=== PATIENT | male | born 1955 | race Caucasian/White ===

== ENCOUNTER 2016-11-11 06:27 | Day surgery (SDC) | payer OTHER ==
[2016-09-22 08:44] VITALS: BMI 36.0
[2016-09-22 08:53] VITALS: BMI 36.0
--- NOTE | 2016-09-22 09:11 | PAT Medication Instructions ---
Service Date September 22, 2016. Current Home Medication List Amlodipine (Norvasc), 5 MG PO QAM Aspirin (Aspirin Ec), 81 MG PO HS Cholestyramine Light (Questran Powder Light), 1 PKT PO qidm Hydrochlorothiazide (Hctz), 1 TAB PO QAM Medication Instructions For Your Scheduled Surgery - Check with surgeon/recordist for instructions: Aspirin (Aspirin Ec), 81 MG PO HS - Hold the following medications the morning of surgery: Hydrochlorothiazide (Hctz), 1 TAB PO QAM Cholestyramine Light (Questran Powder Light), 1 PKT PO qidm - Take the following medications the morning of surgery with a sip of water: Amlodipine (Norvasc), 5 MG PO QAM - Hold the following medications as scheduled the afternoon and night before surgery: Cholestyramine Light (Questran Powder Light), 1 PKT PO qidm If you have any questions please call us at [phone] (Anahi Howell PA-C ) or [phone] or [phone]
--- NOTE | 2016-09-22 09:43 | DIAGNOSTIC IMAGING REPORT ---
CHEST PREADMISSION(PA/LAT) CLINICAL HISTORY: PAT preoperative evaluation COMPARISON STUDY: No previous studies for comparison. FINDINGS: The bones soft tissues and hemidiaphragms are normal. The cardiomediastinal silhouette is normal. The lungs are clear. The pulmonary vasculature is normal. IMPRESSION: Negative chest. Electronically signed by: Christian Garcia M.D. 09/22/2016 9:42 AM Dictated Date/Time: 09/22/2016 9:42 AM
[2016-09-22 10:33] LABS: URINE APPEARANCE CLEAR (CLEAR); URINE BILIRUBIN NEG (NEG); URINE COLOR YELLOW; URINE NITRITE NEG (NEG); URINE SPECIFIC GRAVITY 1.016 (1.000-1.030); UROBILINOGEN NEG (NEG)
[2016-09-22 10:38] LABS: MANUAL MICROSCOPIC REQUIRED? NO; REVIEW REQ? NO
[2016-10-21 12:18] LABS: URINE APPEARANCE CLEAR (CLEAR); URINE BILIRUBIN NEG (NEG); URINE COLOR YELLOW; URINE NITRITE NEG (NEG); UROBILINOGEN NEG (NEG)
[2016-10-21 12:23] LABS: MANUAL MICROSCOPIC REQUIRED? NO; REVIEW REQ? NO
[2016-10-21 12:37] LABS: BASO % 0.5 %; BASO ABS # 0.03 K/uL (0-0.2); COMPLETE YES; EOS % 1.8 %; HEMATOCRIT 42.8 % (42-52); IG% 0.3 %; LYMPH % 26.3 %; LYMPH ABS # 1.73 K/uL (1.2-3.4); MEAN CELL VOLUME 94.1 fL (80-100); MEAN CORPUSCULAR HEMOGLOBIN 32.5 pg (25-34); MEAN CORPUSCULAR HGB CONC 34.6 g/dl (32-36); MEAN PLATELET VOLUME 8.9 fL (7.4-10.4); MONO % 10.5 %; NEUT % 60.6 %; PLATELET COUNT 322 K/uL (130-400); RED BLOOD COUNT 4.55 M/uL (4.7-6.1); WHITE BLOOD COUNT 6.57 K/uL (4.8-10.8)
[2016-10-21 12:42] LABS: BUN/CREATININE RATIO 17.1 (10-20); CALCIUM 9.3 mg/dl (8.5-10.1); POTASSIUM 3.8 mmol/L (3.5-5.1)
[~2016-11-11] VITALS: Ht 172.7 cm; Wt 106.9 kg
[~2016-11-11 06:27] MED LIST: AMLO-110 PO; ASPI81TA28 PO; CHOL4POW2 PO; CIPROFLOXACIN / D5W 400 MG IV SCH; GENTAMICIN INJ 120 MG in DEXTROSE 5% 100ML 100 ML IV SCH; HYDR25TA4 PO; LACTATED RINGER'S 1000ML 1,000 ML IV SCH
[2016-11-11] MEDS ORDERED: ONDANSETRON INJ 2 MG/ML 2 ML VIAL ONE (06:56)
[2016-11-11] MEDS ORDERED: MIDAZOLAM HCL 1 MG/ML 2ML VIAL ONE (06:56)
[2016-11-11] MEDS ORDERED: LIDOCAINE HCL 2% 2 ML VIAL (20MG/ML) ONE (06:56)
[2016-11-11] MEDS ORDERED: DEXAMETHASONE SOD INJ 4 MG/ML VIAL ONE (06:56)
[2016-11-11] MEDS ORDERED: PROPOFOL IV EMULSION 10 MG/ML 20 ML VIAL IV ONE (06:56)
[2016-11-11] MEDS ORDERED: FENTANYL CITRATE INJ 50 MCG/1 ML 2 ML VIAL ONE ×2 (06:56→09:28)
[2016-11-11 06:57] VITALS: BP 188/75; PULSE 97; TEMP 36.5; O2SAT 96; Ht 172.7 cm; Wt 106.9 kg
[2016-11-11] MEDS ORDERED: NEOMYCIN/POLYMYX/BACITR OINT 15 GM TUBE ONE (07:11)
--- NOTE | 2016-11-11 07:59 | History & Physical Bridge Note ---
H&P Re-Evaluation Bridge Note: I have examined the patient, reviewed the History & Physical and in the interval since the performance of the History & Physical I have noted the following changes of clinical significance: No changes noted
[2016-11-11] MEDS ORDERED: ONDANSETRON INJ 2 MG/ML 2 ML VIAL IV PRN (08:15)
[2016-11-11] MEDS ORDERED: LABETALOL HCL IV 5 MG/ML 20ML IV PRN (08:15)
[2016-11-11] MEDS ORDERED: FENTANYL CITRATE INJ 50 MCG/1 ML 2 ML VIAL IV PRN (08:15)
[2016-11-11] MEDS ORDERED: ATROPINE SULFATE 0.1 MG/ML 5ML SYR IV PRN (08:15)
[2016-11-11] MEDS ORDERED: GLYCOPYRROLATE INJ 0.2 MG/ML VIAL ONE (09:08)
[2016-11-11] MEDS ORDERED: ROCURONIUM BROMIDE 10 MG/ML 5 ML VIAL ONE ×2 (09:08→09:29)
[2016-11-11] MEDS ORDERED: NEOSTIGMINE METHYLSULFATE 5 MG/5 ML SYR ONE (09:08)
[2016-11-11] MEDS ORDERED: EpHEDrine SULFATE 50MG/5ML SYR ONE (09:54)
[2016-11-11] MEDS ORDERED: PHENYLEPHRINE 100MCG/ML 5ML SYR ONE (10:12)
--- NOTE | 2016-11-11 10:56 | DIAGNOSTIC IMAGING REPORT ---
INTRAOPERATIVE PELVIS SINGLE VIEW CLINICAL HISTORY: BRACHY THERAPY VOLUME COMPARISON STUDY: No previous studies for comparison. FINDINGS: 4 seconds of fluoroscopic time was utilized. A single intraprocedural fluoroscopic spot film is provided for interpretation. This reveals contrast within the bladder. Multiple brachytherapy prostate seeds are visualized. IMPRESSION: Fluoroscopic spot image demonstrating multiple brachytherapy prostate implant seeds Electronically signed by: Ryan Ospina M.D. 11/11/2016 10:54 AM Dictated Date/Time: 11/11/2016 10:53 AM
--- NOTE | 2016-11-11 10:59 | Discharge Instructions ---
Discharge Instructions Date of Service Nov 11, 2016. Admission Reason for Admission: Prostate Cancer Discharge Discharge Diagnosis / Problem: Prostate cancer s/p brachytherapy Discharge Goals Goal(s): Improve disease control, Therapeutic intervention Activity Recommendations Activity Limitations: as noted below Lifting Limitations: no more than 25 pounds, gradually increase as tolerated ( increase over 5-7 days) Exercise/Sports Limitations: rest today, gradually increase as tolerated (over 5-7 days) May Resume Sexual Activity: after follow-up appointment Shower/Bathe: tomorrow (no tub bath x 1 week) Driving or Machine Use: resume 1 day after discharge . Instructions / Follow-Up Instructions / Follow-Up As scheduled in office Discharge Diet Recommended Diet: Regular Diet (good fluid intake) Procedures Procedures Performed: Transperineal ultrasound guided prostate conformal brachytherapy with implantation of radioactive seeds into the prostate Pending Studies Studies pending at discharge: no Medical Emergencies . Who to Call and When: Medical Emergencies: If at any time you feel your situation is an emergency, please call 911 immediately. . Non-Emergent Contact Non-Emergency issues call your: Urologist Call Non-Emergent contact if: you have a fever, temperature is above 101, your pain is not controlled, your pain is worsening, your pain is unusual for you, your pain is concerning you, wound has increased drainage, wound has increased redness, wound has increased pain, you have any medication questions . . "Provider Documentation" section prepared by Jose Plaza. . VTE Core Measure Inpt VTE Proph given/why not?: SCD's
[2016-11-11] MEDS ORDERED: OXYCODONE/ACETAMINOPHEN 5-325 TAB PO PRN (11:00)
--- NOTE | 2016-11-11 11:01 | [facility] Post Operative Brief Note ---
Immediate Operative Summary Operative Date Nov 11, 2016. Pre-Operative Diagnosis Prostate cancer Post-Operative Diagnosis Prostate cancer Procedure(s) Performed Transperineal ultrasound guided prostate conformal brachytherapy with implantation of radioactive seeds into the prostate Surgeon Dr. Jose Plaza, Dr Tarik Carter Pan Dumper Surgeon(s) Niraml Wislon Estimated Blood Loss 5ml Findings 33 cc prostate, 53 seeds implanted via 18 needles Specimens No pathology specimens per surgeon Drains Arechiga to gravity Anesthesia GAET Complication(s) None Disposition Recovery Room / PACU
--- NOTE | 2016-11-11 11:06 | [facility] Operative Report ---
Operative Report Operative Date Nov 11, 2016. Pre-Operative Diagnosis Prostate cancer Post-Operative Diagnosis Prostate cancer Procedure(s) Performed Transperineal ultrasound guided prostate conformal brachytherapy with implantation of radioactive seeds into the prostate Surgeon Dr. Jose Plaza, Dr Tarik Carter Safety Inspector Surgeon(s) Nirmal Wilson Estimated Blood Loss 5ml Findings 33 cc prostate intraop, 53 seeds implanted via 18 needles Specimens No pathology specimens per surgeon Drains Arechiga to gravity Anesthesia GAET Complication(s) None Disposition Recovery Room / PACU Indications Prostate cancer for radiation therapy with external boost Description of Procedure Patient was properly identified and brought to the operative suite after identification of appropriate consent in the chart. General anesthesia with endotracheal intubation was initiated and patient was prepped and draped in a standard fashion for this procedure. Full-time out procedure was followed. Intravenous gentamicin and ciprofloxacin was provided for antibiotic coverage. Patient followed his prep preop without difficulties. Completion was placed in a dorsal lithotomy position and Arechiga catheter was placed. Bladder was drained and then instilled with diluted contrast solution and then aerated gel. This allowed for identification of the urethra throughout the case. Transrectal ultrasound probe was placed in prostate was easily visualized and mapped out for radiation oncology mapping. Peripheral pass of 12 needles was placed and after radiation oncology planning needles were placed according to plan. Excellent visualization of the needles in their location over the course the procedure was present. After this was complete 6 central needles were placed and implanted under live ultrasound guidance as with the periphery. Fluoroscopy was used throughout the case as necessary for confirmation of seed location. After this was complete perineal pressure was held and antibiotic ointment placed. Catheter was flushed and placed to gravity drainage. Anesthesia was reversed and patient was transferred to the recovery room in stable condition. Procedure was well-tolerated. Patient will be discharged the radiation oncology department for a trial of void. He is filled his prescriptions preoperatively will complete his medications as prescribed. Patient is to contact us regarding any fevers, chills, nausea vomiting or other significant difficulties in the postoperative period I attest to the content of the Intraoperative Record and any orders documented therein. Any exceptions are noted below.
[2016-11-11 11:40] VITALS: BP 123/49; PULSE 61; TEMP 36.4; O2SAT 95
--- NOTE | 2016-11-11 12:55 | Anesthesiology Progress Note ---
Anesthesia Post Op Note Date & Time Nov 11, 2016 at 12:55 Vital Signs Pain Intensity: 0 Vital Signs Past 12 Hours Date Time Temp Pulse Resp B/P (MAP) Pulse Ox O2 Delivery O2 Flow Rate FiO2 11/11/16 11:40 36.4 61 16 123/49 95 Room Air 0 11/11/16 11:31 36.4 11/11/16 11:31 128/66 11/11/16 11:28 63 16 11/11/16 11:28 61 16 100 11/11/16 11:26 126/68 11/11/16 11:23 62 16 100 11/11/16 11:23 63 16 11/11/16 11:22 65 16 100 11/11/16 11:22 64 16 11/11/16 11:21 124/73 11/11/16 11:17 66 15 11/11/16 11:17 66 15 100 11/11/16 11:16 67 16 132/64 100 11/11/16 11:16 66 16 11/11/16 11:11 65 16 11/11/16 11:11 64 16 125/65 100 11/11/16 11:10 71 14 100 11/11/16 11:10 71 14 11/11/16 11:06 131/72 11/11/16 11:05 68 17 100 11/11/16 11:05 68 17 11/11/16 11:02 135/74 11/11/16 11:00 73 25 11/11/16 11:00 72 25 100 11/11/16 10:56 147/75 11/11/16 10:55 36.6 75 16 147/75 99 Mask 10 11/11/16 10:55 78 21 100 11/11/16 10:55 78 21 11/11/16 06:57 36.5 97 18 188/75 (112) 96 Room Air Notes Mental Status: alert / awake / arousable, participated in evaluation Pt Amnestic to Procedure: Yes Nausea / Vomiting: adequately controlled Pain: adequately controlled Airway Patency, RR, SpO2: stable & adequate BP & HR: stable & adequate Hydration State: stable & adequate Anesthetic Complications: no major complications apparent
[2016-12-09] MEDS ORDERED: SILO8CAP PO (14:04)
[2016-12-09] MEDS ORDERED: IBUP200C14 PO (14:04)
[2016-12-09] MEDS ORDERED: METH118C PO (14:08)
[2017-01-10] MEDS ORDERED: FINA5TAB PO (08:12)
[2017-01-24] MEDS ORDERED: PSYL48.59 PO (08:08)
[2017-01-31] MEDS ORDERED: CLB/200 PO (08:11)
== END 2016-11-11 12:50 | disposition home or self-care (01) ==
LOC: C.ACU 06:27
PROVIDERS: ATTEND Urology
DX: C61 Malignant neoplasm of prostate (principal); E78.00 Pure hypercholesterolemia, unspecified; I10 Essential (primary) hypertension; Z80.42 Family history of malignant neoplasm of prostate

== ENCOUNTER 2016-11-13 21:04 | Emergency (ER) | payer OTHER ==
[~2016-11-13] VITALS: Ht 172.7 cm; Wt 107.0 kg
[~2016-11-13 21:04] MED LIST changes: -CIPROFLOXACIN / D5W 400 MG IV SCH; -GENTAMICIN INJ 120 MG in DEXTROSE 5% 100ML 100 ML IV SCH; -LACTATED RINGER'S 1000ML 1,000 ML IV SCH
[2016-11-13 21:08] VITALS: TEMP 36.6; Ht 172.7 cm; Wt 107.0 kg
[2016-11-13 21:36] LABS: URINE APPEARANCE CLEAR (CLEAR); URINE BILIRUBIN NEG (NEG); URINE COLOR DK YELLOW; URINE EPITHELIAL CELL AUTO 0-5 /lpf (0-5); URINE NITRITE POS (NEG); URINE SPECIFIC GRAVITY 1.014 (1.000-1.030); UROBILINOGEN NEG (NEG); ZZURINE CULT IF INDIC CATH NO
[2016-11-13 21:40] LABS: MANUAL MICROSCOPIC REQUIRED? NO; REVIEW REQ? NO
[2016-11-13] MEDS ORDERED: METH4PAK PO (22:03)
[2016-11-13] MEDS ORDERED: CIPR-255 PO (22:08)
[2016-11-13] MEDS ORDERED: PHEN-876 PO (22:10)
[2016-11-13] MEDS ORDERED: TAMS0.4C38 PO (22:11)
[2016-11-13 22:14] VITALS: BP 157/86; PULSE 93; O2SAT 96
--- NOTE | 2016-11-14 01:16 | EMERGENCY ROOM VISIT NOTE ---
History Report prepared by Alenibimani: Annika Willingham Under the Supervision of: Dr. Jan Owens D.O. First contact with patient: 21:11 Chief Complaint: UNABLE TO VOID Stated Complaint: PROSTATE SURGERY TUESDAY, UNABLE TO VOID History of Present Illness The patient is a 61 year old male who presents to the Emergency Room with complaints of being unable to urinate. He reports he underwent prostate surgery 3 days ago and the last time he urinated was approximately 3 hours prior to arrival to the ED. He rates his discomfort as a 7/10 in severity. He reports his urine was red due to Pyridium the last time he urinated. He denies any other complaints at today's visit. Pt denies headache, change in vision, fevers , chest pain, shortness of breath, nausea, vomiting, diarrhea, and melena. 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 A total of 10 systems reviewed and were otherwise negative. Past Medical & Surgical Medical Problems: (1) No significant medical problems Surgical Problems: (1) No significant past surgical history Social History Smoking Status: Never Smoker Alcohol Use: none Drug Use: none Marital Status: Housing Status: lives with family Occupation Status: retired Current/Historical Medications Scheduled Amlodipine (Norvasc), 5 MG PO QAM Aspirin (Aspirin Ec), 81 MG PO HS Cholestyramine Light (Questran Powder Light), 1 PKT PO qidm Ciprofloxacin Hcl (Cipro), 500 MG PO BID Hydrochlorothiazide (Hctz), 25 MG PO QAM Methylprednisolone (Medrol Dosepak), 1 PKT PO UD Tamsulosin Hcl (Flomax), 0.4 MG PO HS Scheduled PRN Phenazopyridine HCl (Pyridium), 200 MG PO TID PRN for Pain Allergies Coded Allergies: No Known Allergies (Unverified , 09/22/16) Physical Exam Vital Signs Date Time Temp Pulse Resp B/P (MAP) Pulse Ox O2 Delivery O2 Flow Rate FiO2 11/13/16 22:14 93 18 157/86 96 11/13/16 21:08 36.6 136 18 192/109 100 Room Air Physical Exam GENERAL: Patient is sitting up in bed, in significant distress, and appears anxious. EYE EXAM: normal conjunctiva, PERRL and EOM's grossly intact OROPHARYNX: no exudate, no erythema, lips, buccal mucosa, and tongue normal and mucous membranes are moist NECK: supple, no nuchal rigidity, no adenopathy, non-tender LUNGS: Clear to auscultation. Normal chest wall mechanics HEART: Tachycardic heart rate, no murmurs, S1 normal and S2 normal ABDOMEN: abdomen soft, non-tender, normo-active bowel sounds, no masses, no rebound or guarding. : Testicles are nontender, without penile discharge. Bedside ultrasound shows a large, distended bladder. BACK: Back is symmetrical on inspection and there is no deformity, no midline tenderness, no CVA tenderness. SKIN: no rashes and no bruising UPPER EXTREMITIES: upper extremities are grossly normal. LOWER EXTREMITIES: No pitting edema. NEURO EXAM: Normal sensorium, cranial nerves II-XII grossly intact, normal speech, no gross weakness of arms, no gross weakness of legs. Gross sensation intact. Medical Decision & Procedures Laboratory Results Test 11/13/16 21:20 Urine Color DK YELLOW Urine Appearance CLEAR (CLEAR) Urine pH 5.0 (4.5-7.5) Urine Specific [place] 1.014 (1.000-1.030) Urine Protein NEG (NEG) Urine Glucose (UA) NEG (NEG) Urine Ketones NEG (NEG) Urine Occult Blood 2+ (NEG) Urine Nitrite POS (NEG) Urine Bilirubin NEG (NEG) Urine Urobilinogen NEG (NEG) Urine Leukocyte Esterase NEG (NEG) Urine WBC (Auto) 0 /hpf (0-5) Urine RBC (Auto) 0-4 /hpf (0-4) Urine Hyaline Casts (Auto) 0 /lpf (0-5) Urine Epithelial Cells (Auto) 0-5 /lpf (0-5) Urine Bacteria (Auto) NEG (NEG) ED Course ED COURSE: Vital signs were reviewed and showed the patient is hypertensive and tachycardic The patients medical record was reviewed The above diagnostic studies were performed and reviewed. ED treatments and interventions as stated above. 2112: The patient was evaluated in room A10. A complete history and physical examination was performed. 2154: Upon reevaluation, the patient is feeling much better. 1000 mL of urine were expressed from his bladder via Arechiga Catheter. I discussed my findings with the patient and he understands and agrees with the treatment plan. He notes he still has Cipro left from his recent surgery. Based on the patients age, coexisting illnesses, exam and lab findings the decision to treat as an outpatient was made. The patient remained stable while under my care. The patient appeared well at the time of discharge. Medical Decision Medication Reconciliation: I attest that I have personally reviewed the patient' s current medication list. Blood Pressure Screening: The patient was found to have a slightly elevated blood pressure due to circumstances. I do not believe that the patient requires hypertension monitoring. Patient is a 61-year-old male who presents the ER for inability urinate. He presents in severe distress as he has not been able to urinate since 3 PM. He had prostate surgery this past . Bedside ultrasound shows a large amount of fluid in bladder. Arechiga was placed. 100 MLS was removed. He is currently on Cipro. He complete resolution of symptoms. He was discharged follow-up with urology on Tuesday morning following complete resolution of his symptoms. UA was negative. Discussed with Pt concerning signs and symptoms to watch out for. Pt was instructed to follow up with their PCP and discussed with the patient their option to return to the ED at anytime for persistent or worsening symptoms. The appropriate anticipatory guidance and out-patient management, including indications for return to the emergency department, were explained at length to the patient and understood. Impression Primary Impression: Urinary retention Scribe Attestation The scribe's documentation has been prepared under my direction and personally reviewed by me in its entirety. I confirm that the note above accurately reflects all work, treatment, procedures, and medical decision making performed by me. Departure Information Dispostion Home / Self-Care Referrals No Doctor, Assigned (PCP) Patient Instructions ED Catheter Care Arechiga, ED Retention Urinary Male, My [facility] Additional Instructions Please follow up with your primary care doctor or urology with in the next 48 hours. Any worsening of your symptoms, please return to the ED immediately. This includes recurrence of the abdominal pain, fevers greater than 100.4, unable to void, chest pain, shortness breath, or any other concerning signs and symptoms from your standpoint.
[2016-12-09] MEDS ORDERED: IBUP200C14 PO (14:04)
[2016-12-09] MEDS ORDERED: SILO8CAP PO (14:04)
[2016-12-09] MEDS ORDERED: METH118C PO (14:08)
[2017-01-10] MEDS ORDERED: FINA5TAB PO (08:12)
[2017-01-24] MEDS ORDERED: PSYL48.59 PO (08:08)
[2017-01-31] MEDS ORDERED: CLB/200 PO (08:11)
== END 2016-11-13 22:17 | disposition home or self-care (01) ==
LOC: C.EDB 21:06 → C.EDA 22:17
DX: R33.9 Retention of urine, unspecified (principal); Z98.890 Other specified postprocedural states; Z79.82 Long term (current) use of aspirin; Z79.899 Other long term (current) drug therapy; R00.0 Tachycardia, unspecified; R03.0 Elevated blood-pressure reading, without diagnosis of hypertension

== ENCOUNTER → 2016-11-16 | Outpatient (CLI) | payer OTHER ==
[~2016-11-16] MED LIST changes: +CIPR-255 PO; +CLB/200 PO; +FINA5TAB PO; +IBUP200C14 PO; +METH118C PO; +METH4PAK PO; +PHEN-876 PO; +PSYL48.59 PO; +SILO8CAP PO; +TAMS0.4C38 PO
== END | disposition home or self-care (01) ==
LOC: C.ONC 13:42
PROVIDERS: ATTEND Physician Assistant Medical
DX: Z51.0 Encounter for antineoplastic radiation therapy (principal)

== ENCOUNTER → 2017-03-17 | Outpatient (CLI) | payer OTHER ==
[~2017-03-17] MED LIST changes: -CIPR-255 PO; -IBUP200C14 PO; -METH4PAK PO; -SILO8CAP PO
[2017-03-17 08:35] VITALS: BP 145/95; PULSE 68; TEMP 36.7; O2SAT 97
--- NOTE | 2017-03-17 09:23 | Radiation Oncology Follow-Up ---
Radiation Oncology Follow-Up Date of Visit Mar 17, 2017. Reason For Visit One-month follow-up and cancer survivorship care plan Radiation Completion Date seed implant on 11-11-2016 and finished radiation therapy on 02-11-2017 Diagnosis (1) Prostate cancer Status: Acute Onset Date: 06/14/2016 Location: both lobes of the prostate Histology Subtype: adenocarcinoma Stage: ll (B biopsy stage) Permanent Comment: Rising PSA to 5.96, status post prostate biopsy 09/06/2014, benign Rising PSA to 11.07, repeat biopsy 06/14/2016 Adenocarcinoma the prostate [place] 3+4 Prostate volume 58.7 Prostate density 0.1 Status post prostate seed implant 11/11/2016, 53 seeds were placed, 8500 cGy Status post completion of radiation therapy with VMAT 02/11/2017. He received 4500 cGy. 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 The patient's father was diagnosed with prostate cancer in his 60s and was treated with a prostate seed implant in the as definitive treatment. Unfortunately his father hadn't significant side effects related to the treatment. The patient is still alive at age 89 but has had significant bowel and bladder issues with incontinence. Patient is therefore been followed with screening prostate-specific antigens. Patient has a history of benign prostatic hypertrophy and his prostate-specific antigen was gradually rising. On 07/18/2013 his prostate-specific antigen was 5.96. In 2014 his prostate- specific antigen was taken in July at [facility] and was reported at around 9. On examination his estimated prostate volume was 40 g [address] clinically benign[address] Arenas performed ultrasound-guided biopsies on 09/16/2014. A total of 15 core samples were taken. 5 of them contained evidence of active inflammation possibly explaining the rise in prostate-specific antigen and all biopsies were benign with no evidence of malignancy identified. Accession #: [id number]. Patient had a follow-up exam on 09/23/2015. He was doing well at the time and had a repeat prostate-specific antigen drawn on 10/29/2015. This showed continued gradual increase to 10.54. Due to the recent negative biopsy decision was made to continue to follow. Therefore on 05/04/2016 patient underwent a repeat prostate-specific antigen. Unfortunately this showed continued gradual rise to 11.07. Because of these changes Dr. Arenas discussed with the patient the option of repeat ultrasound-guided biopsies but this time with the assistance of MRI. The patient agreed and on 05/25/2016 the patient underwent an MRI at [place]. This showed a T2 hypointense signal in the anterior mid gland and base of the transitional zone measuring approximately 3.2 x 1.2 cm on the right and 2.1 x 1.2 cm on the left. This extends up to approximately 2.0 cm cranial caudally in the right gland. The seminal vesicles were symmetric. Lymph nodes revealed small bilateral internal iliac nodes with no pathologically enlarged or morphologically suspicious lymph nodes. This was given a PI-RADS of 5 consistent with a very high likelihood of clinically significant prostate cancer present. The lesion at the base of the right peripheral zone was given aPI-RADS of 3 consistent with an intermediate risk. With this information Dr. Arenas performed a second ultrasound-guided biopsy on 06/14/2016. A total of 19 core samples were taken and received. Biopsy from the left lateral base revealed benign with focal inflammation. Biopsy from the left base, right lateral base and right apex were benign. Biopsy from the right lateral apex revealed atypical acinar proliferation suspicious for adenocarcinoma. One of 2 Biopsies from the right base were positive for adenocarcinoma [place] grade 3+4 involving 20% of the core tissue sample. One of 2 biopsies from the left lateral mid gland was positive for adenocarcinoma [place] grade 3+3 involving 15% of the core tissue sample. One biopsy from the left mid gland were positive for adenocarcinoma [place] grade 3+4 involving 70 % of the core tissue sample. 2 samples from the right mid gland were positive for adenocarcinoma with [place] grade 3+4 involving 60% of the core tissue sample. Acute inflammation was also noted in the sample. 2 biopsies from the right lateral mid gland were positive for adenocarcinoma [place] grade 3+4 involving 30% of the core tissue sample. One biopsy from the left lateral apex were positive for adenocarcinoma [place] grade 3+3 involving 40% of the core tissue sample. One biopsy from the left apex were positive for adenocarcinoma [place] grade 3+4 involving 50% of the core tissue sample. Therefore total of 8 out of 19 samples were positive. 2 were [place] grade 3+3 and 6 were [place] grade 3+4. 3 were positive from the left gland and 5 were positive from the right gland. Accession #: [id number]. Estimated prostate volume was 54.48 g. Patient went on have a staging CT scan of the abdomen and pelvis performed on . No enlarged lymph nodes were identified. No evidence of extraprostatic extension noted. No involvement of seminal vesicles were appreciated. There was postsurgical changes related to a right inguinal hernia repair with mesh placed. There was degenerative changes throughout the spine but no evidence of bony metastatic lesions. In summary there was no findings to indicate metastatic disease on this study. Dr. Arenas reviewed the biopsy and study findings with the patient. She is arrange for him to be seen by Dr. Zelaya in [place] on 08/03/2013 to discuss the role of robotic prostatectomy. She was kind enough to ask us to see the patient to discuss the role of definitive radiation. The patient made a decision to undergo prostate seed implant followed by IMRT IGRT. The implant was completed on 11/11/2016. He received 8500 cGy as boost. Over this past month following the seed implant he has had urinary symptoms. He developed acute urinary retention was seen in the emergency room on November 13. A catheter was placed and 1000 mL of urine was obtained. There was blood clots mixed with the urine. He describes "crippling" burning dysuria which would not allow his sphincter to relax and have a urinary stream. Catheter was left in place for 33 hours. He then removed this the following Tuesday. Voiding was occurring 3-4 times per hour. Difficulty with initiating a stream. 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 At the end of the first week his Flomax was increased to twice a day. He continued on Pyridium every 6 hours. He also had previously taken Percocet for an old ankle injury. He took half a pill which she found to help relieve some of his urinary symptoms. He had multiple conversations with Dr. Plaza's office. He was placed on ibuprofen 800 mg 4 times a day. The urinary medication was changed to Rapaflo once a day and Flomax once a day. He had minimal bowel side effects but did have 1 episode of diarrhea. He completed AUA score sheets and brought these for review. His AUA score was 30 on 11/21/2016. He had seen Dr. Plaza and his postvoid residual was evaluated. This was found be 180 mL. He completed expanded prostate cancer index composite for clinical practice and gave a score of 5 of 12 urinary incontinence symptoms. He gave a score of 12 of 12 urinary irritation symptoms. He gave a score of 11 of 12 bowel symptoms. He felt that the sexual symptoms were not applicable. In these currently are not a problem to him. He was score of one of 12 and hormonal vitality symptoms. His total was 29 of 60. He completed the VMAT treatment on 02/11/2017. He received 4500 cGy. Interim History He has steadily improved over the past month. On 02/28/2017 he was able to void on his own once again. He is not used the catheter since that time. He also saw Dr. Jose Plaza on that same day. Postvoiding residual revealed a value of 43 mL. He does not require any pain medications. He does not require any Flomax or Uroxatral. He has occasional mild dysuria. His energy levels are steadily improving. He is walking 5 miles per day. He gave an AUA score of 10. He completed expanded prostate cancer index composite for clinical practice and gave a score of one of 12 in urinary incontinence symptoms. He gave a score of 3 of 12 in urinary irritation symptoms. He gave a score of 0 of 12 in bowel symptoms. He gave a score of one of 12 sexual symptoms. He gave a score of 0 of 12 in hormonal vitality symptoms. His total was 5 of 60. Allergies Coded Allergies: No Known Allergies (Unverified , 09/22/16) Home Medications Scheduled Amlodipine (Norvasc), 5 MG PO QAM Aspirin (Aspirin Ec), 81 MG PO HS Cholestyramine Light (Questran Powder Light), 1 PKT PO BID17 Hydrochlorothiazide (Hctz), 25 MG PO QAM Review of Systems Gastrointestinal: Symptoms: WNL Oral: Symptoms: No Problems Respiratory: Symptoms: WNL Urinary: Symptoms: Burning Comments: sl burning with urination , urgency , nocturia times 2 , Skin: Symptoms: No Problems Other Skin Symptoms: "excema on ankles " Physical Exam Vital Signs Date Time Temp Pulse Resp B/P (MAP) Pulse Ox O2 Delivery O2 Flow Rate FiO2 03/17/17 08:35 36.7 68 18 145/95 97 Fatigue: None General Appearance: no apparent distress Eyes: normal inspection, EOMI ENT: normal ENT inspection, hearing grossly normal Respiratory/Chest: lungs clear, no respiratory distress, no accessory muscle use Cardiovascular: regular rate, rhythm, no gallop, no murmur Abdomen: non tender, soft, no organomegaly Extremities: no pedal edema Neurologic/Psychiatric: no motor/sensory deficits, alert, normal mood/affect Skin: warm/dry Pain Management Side: Bilateral Patient Preferred Pain Scale: 0 - 10 Pain Rating (0-10): 0 Laboratory Studies Test Pending 03/17/17 08:59 Assessment & Plan Plan: Patient is also seen today by Dr. Coates. The PSA was drawn. He'll be notified as to the results. Continue your follow-up with his primary physician as well as Dr. Plaza. Today we completed a cancer survivorship care plan. A copy the document was given to the patient. He was given a survivorship booklet. We asked him to return to our office in 6 months. He may call if he has any questions or concerns in the interim. Assessment & Plan (Attending) ADDENDUM: I agree with note created by Yenny Flaherty PA-C. I reviewed the patient's chart and information with her. I have examined and evaluated the patient. I reviewed relevant clinical information and answered the patient's and /or family's questions. SERVICE CENTER MANAGER Total Time In Follow-Up I spent 20 minutes speaking to the patient performing examination. I spent 20 minutes reviewing information and completing this note. Total Time (Attending) In Follow-Up I spent 15 minutes examining and counseling the patient. SERVICE CENTER MANAGER Copy To Jose Plaza MD, Urology; Cesar Denney MD
== END | disposition home or self-care (01) ==
LOC: C.ONC 08:24
PROVIDERS: ATTEND Physician Assistant Medical
DX: Z08 Encounter for follow-up examination after completed treatment for malignant neoplasm (principal); Z92.3 Personal history of irradiation; Z85.46 Personal history of malignant neoplasm of prostate